=== PATIENT | male | born 1980 | race Caucasian/White ===

== ENCOUNTER 2021-12-02 07:20 | Outpatient (CLI) | payer OTHER ==
--- NOTE | 2021-12-03 14:09 | MRI Report ---
PROCEDURE: Knee LT W/O INDICATIONS: BILATERAL KNEE PAIN TECHNIQUE: Noncontrast sagittal PD fast spin echo and T2 fast spin echo with fat saturation, sagittal 3-D gradie nt sequence with fat saturation; coronal T1 spin echo and PD fast spin echo with fat saturation, and axial PD fast spin echo with fat saturation through the knee. COMPARISON: None. FINDINGS: Image quality: Excellent. Menisci: There is horizontal tear of the posterior horn the medial meniscus. There is also complex te ar in the body of the medial meniscus. Several meniscal cysts are seen adjacent to the posterior horn measuring up to 0.5 x 0.8 cm. The lateral meniscus demonstrates normal morphology and internal signal. The meniscal root ligaments appear intact. Cruciate ligaments: The anterior and posterior cruciate ligaments appear intact. Medial structures: The medial collateral ligament appears intact. The semimembranosus tendon insert ions and meniscocapsular junction appear intact. Visualized portions of the pes anserinus tendons ap pear normal. No abnormal bursal fluid. Lateral structures: The lateral collateral ligament and the biceps femoris tendon appear intact. Th e popliteus tendon appears normal. Iliotibial band appears normal. Anterior structures: The quadriceps and patellar tendons appear intact. Patellar alignment is ab l. No femoral trochlear dysplasia or ventral trochlear prominence. No edema in the infrapatellar fa t pad. Bones and cartilage: No bone marrow contusions or fractures. There is cartilage fibrillation with re latively preserved cartilage thickness. A near full-thickness cartilage fissure is noted in the late ral facet of patella. Joint space: There is small knee joint effusion. No Sanon's cyst. Normal appearing synovial plicae are incidentally noted. IMPRESSION: 1. Medial meniscal tear. There is a large horizontal tear involving the posterior horn, as well as a complex tear involving the body. 2. Early cartilage degeneration with cartilage fibrillation but relatively preserved cartilage thickn ess. 3. Small knee joint effusion. Reviewed by: Greg Guzmán MD on 12/03/2021 2:08 PM PDT Approved by: Greg Guzmán MD on 12/03/2021 2:08 PM PDT Station ID: [id number]
--- NOTE | 2021-12-03 14:22 | MRI Report ---
PROCEDURE: Knee RT W/O INDICATIONS: BILATERAL KNEE PAIN TECHNIQUE: Noncontrast sagittal PD fast spin echo and T2 fast spin echo with fat saturation, sagittal 3-D gradie nt sequence with fat saturation; coronal T1 spin echo and PD fast spin echo with fat saturation, and axial PD fast spin echo with fat saturation through the knee. COMPARISON: None. FINDINGS: Image quality: Excellent. Menisci: There is complex tear of the medial meniscus involving the posterior horn and body. The free edge of the temporal horn and posterior horn is truncated, consistent with tear. A few small menisca l cysts are seen adjacent to the posterior horn and body. The lateral meniscus demonstrates normal morphology and internal signal. The meniscal root ligaments appear intact. Cruciate ligaments: The anterior and posterior cruciate ligaments appear intact. Medial structures: The medial collateral ligament appears intact. The semimembranosus tendon insert ions and and meniscocapsular junction appear intact. Visualized portions of the pes anserinus tendon s appear normal. No abnormal bursal fluid. Lateral structures: The lateral collateral ligament and the biceps femoris tendon appear intact. Th e popliteus tendon appears normal. Iliotibial band appears normal. Anterior structures: The quadriceps and patellar tendons appear intact. Patellar alignment is ab l. No femoral trochlear dysplasia or ventral trochlear prominence. No edema in the infrapatellar fa t pad. Bones and cartilage: No fractures. There is tricompartmental cartilage thinning and fibrillation wi th relatively preserved cartilage thickness. A full -thickness cartilage fissure is seen in the late ral tibial plateau is associated subchondral edema. Joint space: There is small knee joint fluid. No Sanon's cyst. Normal appearing synovial plicae ar e incidentally noted. IMPRESSION: 1. Medial meniscal tear. There is complex tear involving the posterior horn and body of the medial me niscus. There is truncation of the free edge of the anterior horn and posterior horn. 2. Tricompartmental cartilage thinning and fibrillation with preserved cartilage thickness. There is full thickness cartilage fissure in the lateral tibial plateau with associated subchondral edema . Reviewed by: Greg Guzmán MD on 12/03/2021 2:21 PM PDT Approved by: Greg Guzmán MD on 12/03/2021 2:21 PM PDT Station ID: [id number]
== END 2021-12-02 07:21 | disposition home or self-care (01) ==
LOC: DI 07:20
PROVIDERS: ATTEND Physician Assistant
DX: S83.232A Complex tear of medial meniscus, current injury, left knee, initial encounter (principal); S83.231A Complex tear of medial meniscus, current injury, right knee, initial encounter; M17.9 Osteoarthritis of knee, unspecified; M25.462 Effusion, left knee; M94.9 Disorder of cartilage, unspecified